=== PATIENT | male | born 1960 | race Caucasian/White ===

== ENCOUNTER 2017-09-04 22:25 | Inpatient (IN) | payer OTHER ==
[2017-09-04] MEDS: NITROGLYCERIN 2% 1 GM OINT PKT TD (22:36)
[2017-09-04] MEDS: HYDROmorphONE 1 MG/ML SYG IV ×2 (22:37→22:45)
[2017-09-04 22:38] LABS: ADD MAN DIFF? NO
[2017-09-04 22:40] LABS: WHITE BLOOD COUNT 7.1 10^3/ul (4.8-10.8)
[2017-09-04 22:40] LABS: BASOPHIL # 0.1 10^3/ul (0.0-0.1); BASOPHILS % 0.7 % (0.0-2.0); EOSINOPHILS # 0.2 10^3/ul (0.0-0.5); EOSINOPHILS % 3.2 % (0.0-7.0); HEMATOCRIT 33.2 % (42.0-52.0); HEMOGLOBIN 10.5 g/dl (14.0-18.0); LYMPHOCYTES # 0.9 10^3/ul (0.8-2.9); LYMPHOCYTES % 13.3 % (15.0-51.0); MEAN CORPUSCULAR HGB CONC 31.6 g/dl (32.0-37.0); MEAN CORPUSCULAR VOLUME 101.2 fl (82.0-101.0); MEAN PLATELET VOLUME 11.5 fl (7.4-10.4); MONOCYTE # 0.7 10^3/ul (0.3-0.9); MONOCYTES % 9.3 % (0.0-11.0); NEUTROPHIL # 5.2 10^3/ul (1.6-7.5); NEUTROPHILS % 73.2 % (39.0-77.0); NUCLEATED RED BLOOD CELLS # 0.1 10^3/ul (0.0-0.0); NUCLEATED RED BLOOD CELLS% 0.7 /100WBC (0.0-0.0); PLATELET COUNT 153 10^3/UL (140-415); RED BLOOD COUNT 3.28 10^6/ul (4.70-6.10); RED CELL DISTRIBUTION WIDTH 17.8 % (11.5-14.5)
[2017-09-04] MEDS: LORAZEPAM 2 MG INJ IV (22:45)
[2017-09-04 22:57] LABS: ANION GAP 17 (8-16); BLOOD UREA NITROGEN 36 mg/dl (7-20); CALCIUM 9.6 mg/dl (8.4-10.2); CARBON DIOXIDE 35 mmol/L (21-31); CHLORIDE 96 mmol/L (97-110); CREATININE 5.21 mg/dl (0.61-1.24); GLUCOSE 104 mg/dl (70-220); POTASSIUM 4.8 mmol/L (3.5-5.1); SODIUM 143 mmol/L (135-144)
[2017-09-04 23:17] LABS: TROPONIN-I 0.179 ng/ml (0.00-0.12)
[2017-09-05] MEDS: HYDROmorphONE 1 MG/ML SYG IV ×2 (01:05→03:37)
[2017-09-05] MEDS ORDERED: ONDANSETRON 4 MG INJ IV ×2 (01:30→03:00)
[2017-09-05] MEDS ORDERED: ACETAMINOPHEN 325 MG TAB PO ×2 (01:30→03:00)
[2017-09-05] MEDS ORDERED: DOCUSATE SODIUM 100 MG CAP PO (03:00)
[2017-09-05] MEDS ORDERED: BISACODYL (EC) 5 MG TAB PO (03:00)
[2017-09-05] MEDS ORDERED: NACL 0.9% 3 ML SYG IV (03:00)
[2017-09-05] MEDS: hydrALAzine 20 MG INJ IV (04:03)
[2017-09-05] MEDS: HEPARIN 5,000 UNIT/0.5 ML VIAL SC (06:45)
[2017-09-05] MEDS: HYDROmorphONE 0.5 MG/0.5 ML SYG IV ×4 (06:53→19:43)
[2017-09-05 07:13] LABS: CREATINE KINASE 53 IU/L (23-200)
[2017-09-05 07:15] LABS: CK-MB 2.66 ng/ml (0.0-2.4); TROPONIN-I 0.204 ng/ml (0.00-0.12)
[2017-09-05] MEDS: AMLODIPINE 5 MG TAB PO (10:00)
[2017-09-05] MEDS: CLOPIDOGREL 75 MG TAB PO (10:41)
[2017-09-05] MEDS: LEVOTHYROXINE 25 MCG TAB PO (10:41)
[2017-09-05] MEDS: ISOSORBIDE MONONITRATE(SR)30 MG TAB PO (10:41)
[2017-09-05] MEDS: CYANOCOBALAMIN 500 MCG TAB PO (10:41)
[2017-09-05] MEDS: FERROUS SULFATE (EC) 325 MG TAB PO ×2 (10:41→19:43)
[2017-09-05] MEDS: EZETIMIBE 10 MG TAB PO (10:41)
[2017-09-05] MEDS: ASPIRIN (EC) 81 MG TAB PO (10:42)
[2017-09-05] MEDS: PANTOPRAZOLE (EC) 40 MG TAB PO (10:47)
[2017-09-05] MEDS: CALCITRIOL 0.25 MCG CAP PO (10:47)
[2017-09-05 12:04] LABS: ADD MAN DIFF? NO
[2017-09-05 12:13] LABS: WHITE BLOOD COUNT 6.4 10^3/ul (4.8-10.8)
[2017-09-05 12:13] LABS: BASOPHILS % 0.6 % (0.0-2.0); EOSINOPHILS # 0.2 10^3/ul (0.0-0.5); EOSINOPHILS % 2.8 % (0.0-7.0); HEMATOCRIT 29.7 % (42.0-52.0); HEMOGLOBIN 9.3 g/dl (14.0-18.0); LYMPHOCYTES # 0.7 10^3/ul (0.8-2.9); LYMPHOCYTES % 11.3 % (15.0-51.0); MEAN CORPUSCULAR HEMOGLOBIN 32.3 pg (29.0-33.0); MEAN CORPUSCULAR HGB CONC 31.3 g/dl (32.0-37.0); MEAN CORPUSCULAR VOLUME 103.1 fl (82.0-101.0); MEAN PLATELET VOLUME 11.9 fl (7.4-10.4); MONOCYTE # 0.7 10^3/ul (0.3-0.9); MONOCYTES % 11.5 % (0.0-11.0); NEUTROPHIL # 4.7 10^3/ul (1.6-7.5); NEUTROPHILS % 73.5 % (39.0-77.0); NUCLEATED RED BLOOD CELLS% 0.5 /100WBC (0.0-0.0); PLATELET COUNT 142 10^3/UL (140-415); RED BLOOD COUNT 2.88 10^6/ul (4.70-6.10); RED CELL DISTRIBUTION WIDTH 17.9 % (11.5-14.5)
[2017-09-05] MEDS: SEVELAMER CARBONATE 0.8 GM PKT PO ×3 (12:14→21:00)
[2017-09-05 12:33] LABS: INR 1.15; PARTIAL THROMBOPLASTIN TIME 31.2 Sec (25.0-35.0); PROTIME 14.9 Sec (11.9-14.9); PT RATIO 1.2
[2017-09-05 12:44] LABS: CREATINE KINASE 51 IU/L (23-200)
[2017-09-05 12:56] LABS: CK INDEX 3.9; TROPONIN-I 0.162 ng/ml (0.00-0.12)
[2017-09-05] MEDS: HEPARIN 1000 UNITS/ML 10 ML INJ IV (15:11)
[2017-09-05] MEDS: HEPARIN 25000 UNITS/250 ML 250 ML IV (15:17)
[2017-09-05] MEDS: EPOETIN 10000 UNITS/1 ML INJ (ESRD) SC (17:41)
[2017-09-05 22:08] LABS: PARTIAL THROMBOPLASTIN TIME 53.6 Sec (25.0-35.0)
[2017-09-06] MEDS: HYDROmorphONE 0.5 MG/0.5 ML SYG IV ×7 (00:13→23:42)
[2017-09-06 05:31] LABS: ADD MAN DIFF? NO
[2017-09-06 05:44] LABS: BASOPHIL # 0.1 10^3/ul (0.0-0.1); BASOPHILS % 0.9 % (0.0-2.0); EOSINOPHILS # 0.2 10^3/ul (0.0-0.5); EOSINOPHILS % 2.6 % (0.0-7.0); HEMATOCRIT 30.7 % (42.0-52.0); HEMOGLOBIN 9.9 g/dl (14.0-18.0); LYMPHOCYTES # 0.8 10^3/ul (0.8-2.9); LYMPHOCYTES % 13.7 % (15.0-51.0); MEAN CORPUSCULAR HEMOGLOBIN 32.4 pg (29.0-33.0); MEAN CORPUSCULAR HGB CONC 32.2 g/dl (32.0-37.0); MEAN CORPUSCULAR VOLUME 100.3 fl (82.0-101.0); MEAN PLATELET VOLUME 12.4 fl (7.4-10.4); MONOCYTE # 0.6 10^3/ul (0.3-0.9); MONOCYTES % 9.9 % (0.0-11.0); NEUTROPHIL # 4.1 10^3/ul (1.6-7.5); NEUTROPHILS % 72.5 % (39.0-77.0); NUCLEATED RED BLOOD CELLS% 0.4 /100WBC (0.0-0.0); PLATELET COUNT 133 10^3/UL (140-415); RED BLOOD COUNT 3.06 10^6/ul (4.70-6.10); RED CELL DISTRIBUTION WIDTH 17.6 % (11.5-14.5)
[2017-09-06 05:44] LABS: WHITE BLOOD COUNT 5.7 10^3/ul (4.8-10.8)
[2017-09-06] MEDS: LEVOTHYROXINE 25 MCG TAB PO (06:13)
[2017-09-06] MEDS: PANTOPRAZOLE (EC) 40 MG TAB PO (06:13)
[2017-09-06 06:15] LABS: PARTIAL THROMBOPLASTIN TIME 39.6 Sec (25.0-35.0)
[2017-09-06 06:17] LABS: ALANINE AMINOTRANSFERASE 47 IU/L (13-69); ALBUMIN 4.2 g/dl (3.3-4.9); ALKALINE PHOSPHATASE 115 IU/L (42-121); ANION GAP 22 (8-16); ASPARTATE AMINO TRANSFERASE 26 IU/L (15-46); BILIRUBIN,INDIRECT 0.3 mg/dl (0-1.1); BILIRUBIN,TOTAL 0.3 mg/dl (0.2-1.3); BLOOD UREA NITROGEN 42 mg/dl (7-20); CALCIUM 9.7 mg/dl (8.4-10.2); CARBON DIOXIDE 30 mmol/L (21-31); CHLORIDE 97 mmol/L (97-110); CHOL/HDL RATIO 3.5 RATIO; CHOLESTEROL 153 mg/dl (100-200); CREATININE 6.78 mg/dl (0.61-1.24); GLUCOSE 99 mg/dl (70-220); HDL CHOLESTEROL 43 mg/dl (28-71); LDL CHOLESTEROL,CALCULATED 88 mg/dl; POTASSIUM 5.6 mmol/L (3.5-5.1); SODIUM 143 mmol/L (135-144); TOTAL PROTEIN 7.7 g/dl (6.1-8.1); TRIGLYCERIDES 109 mg/dl (0-149)
[2017-09-06 06:51] LABS: IRON 25 ug/dl (35-150)
[2017-09-06 07:01] LABS: % IRON SATURATION 8 % SAT (22-52); TOTAL IRON BINDING CAPACITY 301 ug/dl (241-421)
[2017-09-06] MEDS: HEPARIN 1000 UNITS/ML 10 ML INJ IV (07:08)
[2017-09-06 07:42] LABS: HEMOGLOBIN A1C 5.4 % (0-5.9)
[2017-09-06] MEDS: SEVELAMER CARBONATE 0.8 GM PKT PO ×4 (08:00→21:00)
[2017-09-06] MEDS: EZETIMIBE 10 MG TAB PO (08:01)
[2017-09-06] MEDS: ISOSORBIDE MONONITRATE(SR)30 MG TAB PO (08:01)
[2017-09-06] MEDS: CALCITRIOL 0.25 MCG CAP PO (08:01)
[2017-09-06] MEDS: CYANOCOBALAMIN 500 MCG TAB PO (08:02)
[2017-09-06] MEDS: CLOPIDOGREL 75 MG TAB PO (08:02)
[2017-09-06] MEDS: FERROUS SULFATE (EC) 325 MG TAB PO ×2 (08:02→20:32)
[2017-09-06] MEDS: AMLODIPINE 5 MG TAB PO ×2 (08:02→20:32)
[2017-09-06] MEDS: ASPIRIN (EC) 81 MG TAB PO (08:02)
[2017-09-06] MEDS: HEPARIN 25000 UNITS/250 ML 250 ML IV ×2 (11:20→15:28)
[2017-09-06 11:36] LABS: PHOSPHORUS 4.5 mg/dl (2.5-4.9)
[2017-09-06] MEDS: SOD FERRIC GLUC COMPLX 125 MG in SOD CHLORIDE 0.9% 100 ML IVPB (12:07)
[2017-09-06 15:22] LABS: PARTIAL THROMBOPLASTIN TIME 85.9 Sec (25.0-35.0)
[2017-09-06] MEDS ORDERED: NITROGLYCERIN (SL) 0.4 MG TAB SL (19:00)
[2017-09-06 21:47] LABS: PARTIAL THROMBOPLASTIN TIME 62.7 Sec (25.0-35.0)
[2017-09-07] MEDS: HEPARIN 25000 UNITS/250 ML 250 ML IV ×5 (02:38→22:25)
[2017-09-07] MEDS: HYDROmorphONE 0.5 MG/0.5 ML SYG IV ×5 (03:37→22:03)
[2017-09-07 04:19] LABS: ADD MAN DIFF? NO
[2017-09-07 04:22] LABS: BASOPHILS % 0.7 % (0.0-2.0); EOSINOPHILS # 0.1 10^3/ul (0.0-0.5); EOSINOPHILS % 2.3 % (0.0-7.0); HEMOGLOBIN 9.7 g/dl (14.0-18.0); LYMPHOCYTES # 0.7 10^3/ul (0.8-2.9); LYMPHOCYTES % 11.8 % (15.0-51.0); MEAN CORPUSCULAR HEMOGLOBIN 32.6 pg (29.0-33.0); MEAN CORPUSCULAR HGB CONC 32.3 g/dl (32.0-37.0); MEAN CORPUSCULAR VOLUME 100.7 fl (82.0-101.0); MEAN PLATELET VOLUME 12.1 fl (7.4-10.4); MONOCYTE # 0.6 10^3/ul (0.3-0.9); MONOCYTES % 9.8 % (0.0-11.0); NEUTROPHIL # 4.5 10^3/ul (1.6-7.5); NEUTROPHILS % 75.2 % (39.0-77.0); PLATELET COUNT 139 10^3/UL (140-415); RED BLOOD COUNT 2.98 10^6/ul (4.70-6.10); RED CELL DISTRIBUTION WIDTH 17.8 % (11.5-14.5)
[2017-09-07 04:51] LABS: ANION GAP 18 (8-16); BLOOD UREA NITROGEN 32 mg/dl (7-20); CALCIUM 9.3 mg/dl (8.4-10.2); CARBON DIOXIDE 29 mmol/L (21-31); CHLORIDE 99 mmol/L (97-110); GLUCOSE 107 mg/dl (70-220); POTASSIUM 5.1 mmol/L (3.5-5.1); SODIUM 141 mmol/L (135-144)
[2017-09-07 04:52] LABS: CREATININE 5.94 mg/dl (0.61-1.24)
[2017-09-07 04:55] LABS: CREATINE KINASE 89 IU/L (23-200)
[2017-09-07 05:09] LABS: CK INDEX 8.1
[2017-09-07 05:13] LABS: CK-MB 7.25 ng/ml (0.0-2.4)
[2017-09-07] MEDS: PANTOPRAZOLE (EC) 40 MG TAB PO (05:40)
[2017-09-07] MEDS: LEVOTHYROXINE 25 MCG TAB PO (05:40)
[2017-09-07] MEDS: CYANOCOBALAMIN 500 MCG TAB PO (07:46)
[2017-09-07] MEDS: SEVELAMER CARBONATE 0.8 GM PKT PO ×3 (07:46→17:52)
[2017-09-07] MEDS: CALCITRIOL 0.25 MCG CAP PO (07:47)
[2017-09-07] MEDS: FERROUS SULFATE (EC) 325 MG TAB PO ×2 (07:47→20:23)
[2017-09-07] MEDS: EZETIMIBE 10 MG TAB PO (07:47)
[2017-09-07] MEDS: AMLODIPINE 5 MG TAB PO ×2 (07:47→20:22)
[2017-09-07] MEDS: ASPIRIN (EC) 81 MG TAB PO (07:48)
[2017-09-07] MEDS: CLOPIDOGREL 75 MG TAB PO (07:48)
[2017-09-07] MEDS ORDERED: ALBUTEROL 0.083% (NEB) 2.5 MG/3 ML AMP HHN (09:00)
[2017-09-07] MEDS: ISOSORBIDE MONONITRATE(SR)60 MG TAB PO (10:05)
[2017-09-07] MEDS: SOD FERRIC GLUC COMPLX 125 MG in SOD CHLORIDE 0.9% 100 ML IVPB (11:38)
[2017-09-07 12:26] LABS: PARTIAL THROMBOPLASTIN TIME 57.1 Sec (25.0-35.0)
[2017-09-07 15:22] LABS: CREATINE KINASE 73 IU/L (23-200)
[2017-09-07 15:35] LABS: CK INDEX 6.5
[2017-09-07 16:03] LABS: CK-MB 4.76 ng/ml (0.0-2.4)
[2017-09-07] MEDS: EPOETIN 10000 UNITS/1 ML INJ (ESRD) SC (17:52)
[2017-09-07] MEDS: OXYCODONE/ACETAMINOPHEN (10/325) TAB PO (20:23)
[2017-09-07 20:40] LABS: PARTIAL THROMBOPLASTIN TIME 91.5 Sec (25.0-35.0)
[2017-09-08] MEDS: HYDROmorphONE 0.5 MG/0.5 ML SYG IV ×7 (02:04→23:34)
[2017-09-08] MEDS: HEPARIN 25000 UNITS/250 ML 250 ML IV (02:20)
[2017-09-08 02:44] LABS: ADD MAN DIFF? NO
[2017-09-08 02:45] LABS: BASOPHILS % 0.7 % (0.0-2.0); EOSINOPHILS # 0.2 10^3/ul (0.0-0.5); EOSINOPHILS % 2.9 % (0.0-7.0); HEMATOCRIT 30.4 % (42.0-52.0); HEMOGLOBIN 9.8 g/dl (14.0-18.0); LYMPHOCYTES # 0.7 10^3/ul (0.8-2.9); LYMPHOCYTES % 12.5 % (15.0-51.0); MEAN CORPUSCULAR HEMOGLOBIN 32.6 pg (29.0-33.0); MEAN CORPUSCULAR HGB CONC 32.2 g/dl (32.0-37.0); MEAN PLATELET VOLUME 11.7 fl (7.4-10.4); MONOCYTE # 0.6 10^3/ul (0.3-0.9); MONOCYTES % 10.2 % (0.0-11.0); NEUTROPHILS % 73.3 % (39.0-77.0); PLATELET COUNT 130 10^3/UL (140-415); RED BLOOD COUNT 3.01 10^6/ul (4.70-6.10); RED CELL DISTRIBUTION WIDTH 17.3 % (11.5-14.5)
[2017-09-08 02:45] LABS: WHITE BLOOD COUNT 5.5 10^3/ul (4.8-10.8)
[2017-09-08] MEDS: LEVOTHYROXINE 25 MCG TAB PO (05:07)
[2017-09-08] MEDS: PANTOPRAZOLE (EC) 40 MG TAB PO ×2 (05:07→17:34)
[2017-09-08 07:03] LABS: ADD MAN DIFF? NO
[2017-09-08 07:10] LABS: WHITE BLOOD COUNT 5.1 10^3/ul (4.8-10.8)
[2017-09-08 07:10] LABS: BASOPHILS % 0.8 % (0.0-2.0); EOSINOPHILS # 0.1 10^3/ul (0.0-0.5); EOSINOPHILS % 2.3 % (0.0-7.0); HEMATOCRIT 29.6 % (42.0-52.0); HEMOGLOBIN 9.6 g/dl (14.0-18.0); LYMPHOCYTES # 0.7 10^3/ul (0.8-2.9); LYMPHOCYTES % 12.9 % (15.0-51.0); MEAN CORPUSCULAR HEMOGLOBIN 32.2 pg (29.0-33.0); MEAN CORPUSCULAR HGB CONC 32.4 g/dl (32.0-37.0); MEAN CORPUSCULAR VOLUME 99.3 fl (82.0-101.0); MEAN PLATELET VOLUME 12.6 fl (7.4-10.4); MONOCYTE # 0.6 10^3/ul (0.3-0.9); MONOCYTES % 11.5 % (0.0-11.0); NEUTROPHIL # 3.7 10^3/ul (1.6-7.5); NEUTROPHILS % 72.3 % (39.0-77.0); PLATELET COUNT 135 10^3/UL (140-415); RED BLOOD COUNT 2.98 10^6/ul (4.70-6.10); RED CELL DISTRIBUTION WIDTH 17.2 % (11.5-14.5)
[2017-09-08 07:35] LABS: PARTIAL THROMBOPLASTIN TIME 37.1 Sec (25.0-35.0)
[2017-09-08 07:41] LABS: CREATINE KINASE 58 IU/L (23-200)
[2017-09-08 07:53] LABS: CK INDEX 6.2
[2017-09-08 07:54] LABS: CK-MB 3.57 ng/ml (0.0-2.4)
[2017-09-08] MEDS: SEVELAMER CARBONATE 0.8 GM PKT PO ×3 (08:24→17:34)
[2017-09-08] MEDS: CALCITRIOL 0.25 MCG CAP PO (08:24)
[2017-09-08] MEDS: CYANOCOBALAMIN 500 MCG TAB PO (08:24)
[2017-09-08] MEDS: FERROUS SULFATE (EC) 325 MG TAB PO ×2 (08:25→20:44)
[2017-09-08] MEDS: ASPIRIN (EC) 81 MG TAB PO (08:25)
[2017-09-08] MEDS: CLOPIDOGREL 75 MG TAB PO (08:27)
[2017-09-08] MEDS: EZETIMIBE 10 MG TAB PO (08:27)
[2017-09-08] MEDS: ISOSORBIDE MONONITRATE(SR)60 MG TAB PO (08:33)
[2017-09-08] MEDS: AMLODIPINE 5 MG TAB PO ×2 (08:33→20:43)
[2017-09-08] MEDS: SOD FERRIC GLUC COMPLX 125 MG in SOD CHLORIDE 0.9% 100 ML IVPB (10:57)
[2017-09-08 13:43] LABS: OCCULT BLOOD STOOL POSITIVE (NEGATIVE)
[2017-09-08 14:49] LABS: ADD MAN DIFF? NO
[2017-09-08 14:52] LABS: ABNORMAL IP MESSAGE 1; BASOPHILS % 0.6 % (0.0-2.0); EOSINOPHILS # 0.1 10^3/ul (0.0-0.5); EOSINOPHILS % 2.3 % (0.0-7.0); HEMOGLOBIN 9.6 g/dl (14.0-18.0); LYMPHOCYTES # 0.5 10^3/ul (0.8-2.9); LYMPHOCYTES % 10.2 % (15.0-51.0); MEAN CORPUSCULAR HEMOGLOBIN 31.7 pg (29.0-33.0); MEAN PLATELET VOLUME 11.5 fl (7.4-10.4); MONOCYTE # 0.5 10^3/ul (0.3-0.9); MONOCYTES % 10.2 % (0.0-11.0); NEUTROPHILS % 76.5 % (39.0-77.0); PLATELET COUNT 135 10^3/UL (140-415); POSITIVE DIFF @See below; RED BLOOD COUNT 3.03 10^6/ul (4.70-6.10)
[2017-09-08 14:52] LABS: WHITE BLOOD COUNT 5.3 10^3/ul (4.8-10.8)
[2017-09-08] MEDS: PANTOPRAZOLE 40 MG INJ IV (17:34)
[2017-09-08 20:16] LABS: ADD MAN DIFF? NO
[2017-09-08 20:19] LABS: WHITE BLOOD COUNT 4.8 10^3/ul (4.8-10.8)
[2017-09-08 20:19] LABS: ABNORMAL IP MESSAGE 1; BASOPHILS % 0.4 % (0.0-2.0); EOSINOPHILS # 0.1 10^3/ul (0.0-0.5); EOSINOPHILS % 2.3 % (0.0-7.0); HEMATOCRIT 30.3 % (42.0-52.0); HEMOGLOBIN 9.9 g/dl (14.0-18.0); LYMPHOCYTES # 0.5 10^3/ul (0.8-2.9); LYMPHOCYTES % 10.5 % (15.0-51.0); MEAN CORPUSCULAR HEMOGLOBIN 32.6 pg (29.0-33.0); MEAN CORPUSCULAR HGB CONC 32.7 g/dl (32.0-37.0); MEAN CORPUSCULAR VOLUME 99.7 fl (82.0-101.0); MEAN PLATELET VOLUME 12.4 fl (7.4-10.4); MONOCYTE # 0.6 10^3/ul (0.3-0.9); MONOCYTES % 12.2 % (0.0-11.0); NEUTROPHIL # 3.6 10^3/ul (1.6-7.5); NEUTROPHILS % 74.4 % (39.0-77.0); PLATELET COUNT 134 10^3/UL (140-415); POSITIVE DIFF @See below; RED BLOOD COUNT 3.04 10^6/ul (4.70-6.10); RED CELL DISTRIBUTION WIDTH 16.9 % (11.5-14.5)
[2017-09-09] MEDS: HYDROmorphONE 0.5 MG/0.5 ML SYG IV ×7 (02:26→21:49)
[2017-09-09 02:32] LABS: ADD MAN DIFF? NO
[2017-09-09 04:24] LABS: BASOPHILS % 0.7 % (0.0-2.0); EOSINOPHILS # 0.1 10^3/ul (0.0-0.5); EOSINOPHILS % 2.2 % (0.0-7.0); HEMATOCRIT 33.8 % (42.0-52.0); HEMOGLOBIN 11.2 g/dl (14.0-18.0); LYMPHOCYTES # 0.6 10^3/ul (0.8-2.9); LYMPHOCYTES % 11.4 % (15.0-51.0); MEAN CORPUSCULAR HEMOGLOBIN 32.4 pg (29.0-33.0); MEAN CORPUSCULAR HGB CONC 33.1 g/dl (32.0-37.0); MEAN CORPUSCULAR VOLUME 97.7 fl (82.0-101.0); MEAN PLATELET VOLUME 11.1 fl (7.4-10.4); MONOCYTE # 0.7 10^3/ul (0.3-0.9); MONOCYTES % 13.4 % (0.0-11.0); NEUTROPHIL # 3.9 10^3/ul (1.6-7.5); NEUTROPHILS % 71.7 % (39.0-77.0); PLATELET COUNT 125 10^3/UL (140-415); RED BLOOD COUNT 3.46 10^6/ul (4.70-6.10); RED CELL DISTRIBUTION WIDTH 16.7 % (11.5-14.5)
[2017-09-09 04:24] LABS: WHITE BLOOD COUNT 5.4 10^3/ul (4.8-10.8)
[2017-09-09] MEDS: PANTOPRAZOLE 40 MG INJ IV ×2 (06:13→17:35)
[2017-09-09] MEDS: PANTOPRAZOLE (EC) 40 MG TAB PO ×2 (06:13→17:35)
[2017-09-09] MEDS: LEVOTHYROXINE 25 MCG TAB PO (06:20)
[2017-09-09] MEDS: SEVELAMER CARBONATE 0.8 GM PKT PO ×3 (08:22→17:36)
[2017-09-09] MEDS: ISOSORBIDE MONONITRATE(SR)60 MG TAB PO (08:22)
[2017-09-09] MEDS: CALCITRIOL 0.25 MCG CAP PO (08:22)
[2017-09-09] MEDS: EZETIMIBE 10 MG TAB PO (08:23)
[2017-09-09] MEDS: AMLODIPINE 5 MG TAB PO ×2 (08:23→21:48)
[2017-09-09] MEDS: CLOPIDOGREL 75 MG TAB PO (08:23)
[2017-09-09] MEDS: CYANOCOBALAMIN 500 MCG TAB PO (08:23)
[2017-09-09] MEDS: FERROUS SULFATE (EC) 325 MG TAB PO ×2 (08:23→21:48)
[2017-09-09] MEDS: ASPIRIN (EC) 81 MG TAB PO (08:23)
[2017-09-09] MEDS: SOD FERRIC GLUC COMPLX 125 MG in SOD CHLORIDE 0.9% 100 ML IVPB (11:27)
[2017-09-10] MEDS: HYDROmorphONE 0.5 MG/0.5 ML SYG IV ×7 (00:52→20:47)
[2017-09-10] MEDS: HYDROCORTISONE 25 MG SUPP PR ×3 (01:03→21:00)
[2017-09-10] MEDS: PANTOPRAZOLE (EC) 40 MG TAB PO (06:36)
[2017-09-10] MEDS: PANTOPRAZOLE 40 MG INJ IV ×2 (06:36→17:10)
[2017-09-10] MEDS: LEVOTHYROXINE 25 MCG TAB PO (06:39)
[2017-09-10] MEDS: FERROUS SULFATE (EC) 325 MG TAB PO ×2 (08:45→20:46)
[2017-09-10] MEDS: CLOPIDOGREL 75 MG TAB PO (08:45)
[2017-09-10] MEDS: ASPIRIN (EC) 81 MG TAB PO (08:45)
[2017-09-10] MEDS: CYANOCOBALAMIN 500 MCG TAB PO (08:45)
[2017-09-10] MEDS: CALCITRIOL 0.25 MCG CAP PO (08:45)
[2017-09-10] MEDS: EZETIMIBE 10 MG TAB PO (08:46)
[2017-09-10] MEDS: SEVELAMER CARBONATE 0.8 GM PKT PO ×3 (08:47→17:10)
[2017-09-10] MEDS: AMLODIPINE 5 MG TAB PO ×3 (08:48→20:46)
[2017-09-10] MEDS: ISOSORBIDE MONONITRATE(SR)60 MG TAB PO ×2 (08:48→08:57)
[2017-09-10] MEDS: SOD FERRIC GLUC COMPLX 125 MG in SOD CHLORIDE 0.9% 100 ML IVPB (11:55)
[2017-09-10] MEDS: EPOETIN 10000 UNITS/1 ML INJ (ESRD) SC (17:11)
== END 2017-09-10 21:57 | disposition short-term general hospital (02) | DRG 280 ==
LOC: TEL 09-07 17:33 → E/R 22:25 → TEL 09-08 16:44
PROC: 5A1D70Z Performance of Urinary Filtration, Intermittent, Less than 6 Hours Per Day (ICD-10-PCS; principal; 2017-09-05)
DX: I21.4 Non-ST elevation (NSTEMI) myocardial infarction (principal); I13.2 Hypertensive heart and chronic kidney disease with heart failure and with stage 5 chronic kidney disease, or end stage renal disease; N18.6 End stage renal disease; I50.31 Acute diastolic (congestive) heart failure; E78.5 Hyperlipidemia, unspecified; E11.22 Type 2 diabetes mellitus with diabetic chronic kidney disease; E03.9 Hypothyroidism, unspecified; R00.1 Bradycardia, unspecified; K64.9 Unspecified hemorrhoids; I25.10 Atherosclerotic heart disease of native coronary artery without angina pectoris; D63.1 Anemia in chronic kidney disease; E87.5 Hyperkalemia; Z95.1 Presence of aortocoronary bypass graft; Z95.5 Presence of coronary angioplasty implant and graft; Z99.2 Dependence on renal dialysis
CPT/HCPCS: 36415; 71010; 76700; 80048; 80053; 80061; 82270; 82550; 82553; 82728; 83036; 83540; 83735; 84100; 84443; 84484; 85025; 85610; 85730; 86850; 86900; 86901; 87081; 90935; 93005; 93306; 96374; 96375; 96376; 99285-25; G0378

== ENCOUNTER 2017-12-30 18:05 | Emergency (ER) | payer OTHER ==
[2017-12-30] MEDS: NITROGLYCERIN 2% 1 GM OINT PKT TD (18:43)
[2017-12-30 18:49] LABS: WHITE BLOOD COUNT 4.4 10^3/ul (4.8-10.8)
[2017-12-30 18:49] LABS: HEMOGLOBIN 9.4 g/dl (14.0-18.0); MEAN CORPUSCULAR HEMOGLOBIN 30.5 pg (29.0-33.0); MEAN CORPUSCULAR HGB CONC 31.3 g/dl (32.0-37.0); MEAN CORPUSCULAR VOLUME 97.4 fl (82.0-101.0); MEAN PLATELET VOLUME 11.1 fl (7.4-10.4); PLATELET COUNT 201 10^3/UL (140-415); RED BLOOD COUNT 3.08 10^6/ul (4.70-6.10); RED CELL DISTRIBUTION WIDTH 16.6 % (11.5-14.5)
[2017-12-30 18:54] LABS: ADD MAN DIFF? YES
[2017-12-30 19:10] LABS: ANION GAP 19 (8-16); BLOOD UREA NITROGEN 46 mg/dl (7-20); CALCIUM 9.7 mg/dl (8.4-10.2); CARBON DIOXIDE 31 mmol/L (21-31); CHLORIDE 97 mmol/L (97-110); CREATININE 11.41 mg/dl (0.61-1.24); GLUCOSE 118 mg/dl (70-220); PHOSPHORUS 6.6 mg/dl (2.5-4.9); POTASSIUM 4.9 mmol/L (3.5-5.1); SODIUM 142 mmol/L (135-144)
[2017-12-30 19:24] LABS: INR 1.05; PARTIAL THROMBOPLASTIN TIME 32.9 Sec (25.0-35.0); PROTIME 13.8 Sec (11.9-14.9); PT RATIO 1.1
[2017-12-30] MEDS: HYDROmorphONE 0.5 MG/0.5 ML SYG IV (19:45)
[2017-12-30 20:21] LABS: ANISOCYTOSIS 1+ (0-0); BASOPHILS % (M) 2 % (0-2); EOSINOPHILS % (M) 1 % (0-7); GIANT THROMBO% (M) 4 % (0-0); LYMPHOCYTES #M 1.1 10^3/ul (0.8-2.9); LYMPHOCYTES % (M) 25 % (15-51); METAMYELOCYTES %M 1 % (0-0); MONOCYTE #M 0.4 10^3/ul (0.3-0.9); MONOCYTES % (M) 10 % (0-11); OVALOCYTES 1+ (0-0); PLATELET ESTIMATE NORMAL; POIKILOCYTOSIS 1+ (0-0); SEGMENTED NEUTROPHILS (M) % 61 % (39-77); SMUDGE%M 3 % (0-0)
== END 2017-12-30 22:01 | disposition short-term general hospital (02) ==
LOC: E/R 22:01
DX: R07.9 Chest pain, unspecified (principal); D64.9 Anemia, unspecified; D72.819 Decreased white blood cell count, unspecified; I25.10 Atherosclerotic heart disease of native coronary artery without angina pectoris; I12.9 Hypertensive chronic kidney disease with stage 1 through stage 4 chronic kidney disease, or unspecified chronic kidney disease; N18.9 Chronic kidney disease, unspecified; E03.9 Hypothyroidism, unspecified; E11.22 Type 2 diabetes mellitus with diabetic chronic kidney disease; Z95.1 Presence of aortocoronary bypass graft; Z99.2 Dependence on renal dialysis; Z79.82 Long term (current) use of aspirin; Z98.61 Coronary angioplasty status
CPT/HCPCS: 36415; 71045; 80048; 83735; 84100; 84484; 85025; 85610; 85730; 93005; 96374; 99285-25

== ENCOUNTER 2018-02-12 20:33 | Emergency (ER) | payer OTHER ==
[2018-02-12 21:26] LABS: ADD MAN DIFF? NO
[2018-02-12 21:29] LABS: BASOPHIL # 0.1 10^3/ul (0.0-0.1); BASOPHILS % 1.2 % (0.0-2.0); EOSINOPHILS # 0.1 10^3/ul (0.0-0.5); EOSINOPHILS % 2.5 % (0.0-7.0); HEMATOCRIT 34.3 % (42.0-52.0); HEMOGLOBIN 10.8 g/dl (14.0-18.0); LYMPHOCYTES # 1.1 10^3/ul (0.8-2.9); LYMPHOCYTES % 19.1 % (15.0-51.0); MEAN CORPUSCULAR HEMOGLOBIN 30.7 pg (29.0-33.0); MEAN CORPUSCULAR HGB CONC 31.5 g/dl (32.0-37.0); MEAN CORPUSCULAR VOLUME 97.4 fl (82.0-101.0); MEAN PLATELET VOLUME 11.3 fl (7.4-10.4); MONOCYTE # 0.5 10^3/ul (0.3-0.9); MONOCYTES % 9.6 % (0.0-11.0); NEUTROPHIL # 3.8 10^3/ul (1.6-7.5); NEUTROPHILS % 67.2 % (39.0-77.0); PLATELET COUNT 181 10^3/UL (140-415); RED BLOOD COUNT 3.52 10^6/ul (4.70-6.10); RED CELL DISTRIBUTION WIDTH 16.9 % (11.5-14.5)
[2018-02-12 21:29] LABS: WHITE BLOOD COUNT 5.7 10^3/ul (4.8-10.8)
[2018-02-12 21:38] LABS: ALANINE AMINOTRANSFERASE 33 IU/L (13-69); ALBUMIN/GLOBULIN RATIO 1.14; ALKALINE PHOSPHATASE 83 IU/L (42-121); ANION GAP 17 (8-16); ASPARTATE AMINO TRANSFERASE 20 IU/L (15-46); BILIRUBIN,INDIRECT 0.1 mg/dl (0-1.1); BILIRUBIN,TOTAL 0.1 mg/dl (0.2-1.3); BLOOD UREA NITROGEN 56 mg/dl (7-20); CALCIUM 8.9 mg/dl (8.4-10.2); CARBON DIOXIDE 33 mmol/L (21-31); CHLORIDE 100 mmol/L (97-110); CREATININE 9.06 mg/dl (0.61-1.24); GLUCOSE 94 mg/dl (70-220); LIPASE 53 U/L (23-300); POTASSIUM 5.2 mmol/L (3.5-5.1); SODIUM 145 mmol/L (135-144); TOTAL PROTEIN 7.5 g/dl (6.1-8.1)
[2018-02-12 21:49] LABS: TROPONIN-I 0.111 ng/ml (0.000-0.120)
[2018-02-12] MEDS: ASPIRIN 81 MG TAB PO (22:05)
[2018-02-12 22:07] LABS: B-TYPE NATRIURETIC PEPTIDE 120000 PG/ML (0-125)
[2018-02-12] MEDS: OXYCODONE/ACETAMINOPHEN (5/325) TAB PO (23:07)
== END 2018-02-13 01:05 | disposition short-term general hospital (02) ==
LOC: E/R 02-13 01:05
DX: I50.41 Acute combined systolic (congestive) and diastolic (congestive) heart failure (principal); J81.0 Acute pulmonary edema; N18.6 End stage renal disease; G89.4 Chronic pain syndrome; I12.0 Hypertensive chronic kidney disease with stage 5 chronic kidney disease or end stage renal disease; I25.10 Atherosclerotic heart disease of native coronary artery without angina pectoris; E11.22 Type 2 diabetes mellitus with diabetic chronic kidney disease; E03.9 Hypothyroidism, unspecified; E66.9 Obesity, unspecified; Z98.61 Coronary angioplasty status; Z79.82 Long term (current) use of aspirin
CPT/HCPCS: 36415; 71045; 80053; 83690; 83880; 84484; 85025; 94660; 99291-25

== ENCOUNTER 2018-03-07 22:14 | Emergency (ER) | payer OTHER ==
[2018-03-07 22:25] LABS: ADD MAN DIFF? NO
[2018-03-07] MEDS: HYDROmorphONE 1 MG/ML SYG IV (22:26)
[2018-03-07] MEDS: ONDANSETRON 4 MG INJ IV (22:26)
[2018-03-07 22:27] LABS: BASOPHILS % 0.6 % (0.0-2.0); EOSINOPHILS # 0.3 10^3/ul (0.0-0.5); HEMATOCRIT 35.6 % (42.0-52.0); HEMOGLOBIN 11.1 g/dl (14.0-18.0); LYMPHOCYTES % 14.7 % (15.0-51.0); MEAN CORPUSCULAR HEMOGLOBIN 29.7 pg (29.0-33.0); MEAN CORPUSCULAR HGB CONC 31.2 g/dl (32.0-37.0); MEAN CORPUSCULAR VOLUME 95.2 fl (82.0-101.0); MEAN PLATELET VOLUME 11.8 fl (7.4-10.4); MONOCYTE # 0.7 10^3/ul (0.3-0.9); MONOCYTES % 10.3 % (0.0-11.0); NEUTROPHIL # 4.8 10^3/ul (1.6-7.5); PLATELET COUNT 110 10^3/UL (140-415); RED BLOOD COUNT 3.74 10^6/ul (4.70-6.10); RED CELL DISTRIBUTION WIDTH 16.5 % (11.5-14.5)
[2018-03-07 22:27] LABS: WHITE BLOOD COUNT 6.8 10^3/ul (4.8-10.8)
[2018-03-07 22:45] LABS: ALANINE AMINOTRANSFERASE 47 IU/L (13-69); ALBUMIN 4.3 g/dl (3.3-4.9); ALBUMIN/GLOBULIN RATIO 1.13; ALKALINE PHOSPHATASE 109 IU/L (42-121); AMYLASE 127 U/L (11-123); ANION GAP 19 (8-16); ASPARTATE AMINO TRANSFERASE 28 IU/L (15-46); BILIRUBIN,INDIRECT 0.4 mg/dl (0-1.1); BILIRUBIN,TOTAL 0.4 mg/dl (0.2-1.3); BLOOD UREA NITROGEN 29 mg/dl (7-20); CALCIUM 8.7 mg/dl (8.4-10.2); CARBON DIOXIDE 34 mmol/L (21-31); CHLORIDE 98 mmol/L (97-110); CREATININE 4.97 mg/dl (0.61-1.24); GLUCOSE 99 mg/dl (70-220); LIPASE 255 U/L (23-300); POTASSIUM 4.6 mmol/L (3.5-5.1); SODIUM 146 mmol/L (135-144); TOTAL PROTEIN 8.1 g/dl (6.1-8.1)
[2018-03-07 22:55] LABS: INR 1.17; PROTIME 15.1 Sec (11.9-14.9); PT RATIO 1.2
[2018-03-07 22:56] LABS: PARTIAL THROMBOPLASTIN TIME 29.7 Sec (25.0-35.0)
== END 2018-03-08 00:27 | disposition short-term general hospital (02) ==
LOC: E/R 03-08 00:27
DX: I21.4 Non-ST elevation (NSTEMI) myocardial infarction (principal); I25.10 Atherosclerotic heart disease of native coronary artery without angina pectoris; I12.0 Hypertensive chronic kidney disease with stage 5 chronic kidney disease or end stage renal disease; N18.6 End stage renal disease; Z79.01 Long term (current) use of anticoagulants; Z95.1 Presence of aortocoronary bypass graft; Z99.2 Dependence on renal dialysis; Z79.82 Long term (current) use of aspirin
CPT/HCPCS: 80053; 82150; 83690; 84484; 85025; 85610; 85730; 93005; 96374; 96375; 99285-25

== ENCOUNTER 2018-04-04 20:34 | Inpatient (IN) | payer OTHER ==
[2018-04-04 20:47] LABS: ADD MAN DIFF? NO
[2018-04-04 20:53] LABS: ABNORMAL IP MESSAGE 1; BASOPHILS % 0.6 % (0.0-2.0); EOSINOPHILS # 0.1 10^3/ul (0.0-0.5); EOSINOPHILS % 0.9 % (0.0-7.0); HEMATOCRIT 34.6 % (42.0-52.0); LYMPHOCYTES # 0.5 10^3/ul (0.8-2.9); LYMPHOCYTES % 6.9 % (15.0-51.0); MEAN CORPUSCULAR HGB CONC 31.8 g/dl (32.0-37.0); MEAN CORPUSCULAR VOLUME 94.3 fl (82.0-101.0); MEAN PLATELET VOLUME 12.5 fl (7.4-10.4); MONOCYTE # 0.4 10^3/ul (0.3-0.9); MONOCYTES % 6.4 % (0.0-11.0); NEUTROPHIL # 5.9 10^3/ul (1.6-7.5); NEUTROPHILS % 84.8 % (39.0-77.0); PLATELET COUNT 107 10^3/UL (140-415); POSITIVE DIFF @See below; RED BLOOD COUNT 3.67 10^6/ul (4.70-6.10); RED CELL DISTRIBUTION WIDTH 17.2 % (11.5-14.5)
[2018-04-04 20:53] LABS: WHITE BLOOD COUNT 6.9 10^3/ul (4.8-10.8)
[2018-04-04] MEDS: NITROGLYCERIN (SL) 0.4 MG TAB SL (20:54)
[2018-04-04] MEDS: ASPIRIN 81 MG TAB PO (20:54)
[2018-04-04] MEDS: NITROGLYCERIN 2% 1 GM OINT PKT TD (20:55)
[2018-04-04 21:11] LABS: ANION GAP 16 (8-16); BLOOD UREA NITROGEN 27 mg/dl (7-20); CARBON DIOXIDE 31 mmol/L (21-31); CHLORIDE 98 mmol/L (97-110); CREATININE 4.33 mg/dl (0.61-1.24); GLUCOSE 125 mg/dl (70-220); POTASSIUM 3.9 mmol/L (3.5-5.1); SODIUM 141 mmol/L (135-144)
[2018-04-04 21:29] LABS: TROPONIN-I 0.133 ng/ml (0.000-0.120)
[2018-04-04] MEDS ORDERED: ONDANSETRON 4 MG INJ IV ×2 (22:30→23:30)
[2018-04-04] MEDS ORDERED: ACETAMINOPHEN 325 MG TAB PO ×2 (22:30→23:30)
[2018-04-04] MEDS ORDERED: NITROGLYCERIN (SL) 0.4 MG TAB SL (23:30)
[2018-04-04] MEDS: HYDROCODONE/APAP (5/325) TAB PO (23:42)
[2018-04-05] MEDS: HYDROCODONE/APAP (5/325) TAB PO (00:53)
[2018-04-05 01:01] LABS: CREATINE KINASE 63 IU/L (23-200)
[2018-04-05] MEDS: HYDROmorphONE 2 MG TAB PO (01:07)
[2018-04-05 01:15] LABS: CK INDEX 3.1; CK-MB 1.93 ng/ml (0.0-2.4)
[2018-04-05 01:26] LABS: TROPONIN-I 0.133 ng/ml (0.000-0.120)
[2018-04-05] MEDS: LACTULOSE 30ML CUP PO ×2 (04:00→16:00)
[2018-04-05] MEDS ORDERED: NACL 0.9% 3 ML SYG IV (04:00)
[2018-04-05] MEDS ORDERED: ONDANSETRON 4 MG INJ IV (04:00)
[2018-04-05] MEDS ORDERED: NITROGLYCERIN (SL) 0.4 MG TAB SL (04:00)
[2018-04-05] MEDS ORDERED: ALBUTEROL/IPRATROPIUM (NEB) 3 ML AMP HHN (04:00)
[2018-04-05] MEDS ORDERED: ACETAMINOPHEN 325 MG TAB PO (04:00)
[2018-04-05] MEDS: oxyCODONE (CR) 10 MG TAB [oxyCONTIN] PO ×4 (04:00→21:23)
[2018-04-05] MEDS: HYDROmorphONE 4 MG TAB PO ×2 (05:50→12:46)
[2018-04-05] MEDS: PANTOPRAZOLE (EC) 40 MG TAB PO (05:50)
[2018-04-05 06:38] LABS: ADD MAN DIFF? NO
[2018-04-05 06:44] LABS: ABNORMAL IP MESSAGE 1; BASOPHIL # 0.1 10^3/ul (0.0-0.1); BASOPHILS % 0.7 % (0.0-2.0); EOSINOPHILS # 0.1 10^3/ul (0.0-0.5); EOSINOPHILS % 1.2 % (0.0-7.0); HEMATOCRIT 34.1 % (42.0-52.0); HEMOGLOBIN 10.5 g/dl (14.0-18.0); LYMPHOCYTES # 0.9 10^3/ul (0.8-2.9); LYMPHOCYTES % 13.1 % (15.0-51.0); MEAN CORPUSCULAR HEMOGLOBIN 28.9 pg (29.0-33.0); MEAN CORPUSCULAR HGB CONC 30.8 g/dl (32.0-37.0); MEAN CORPUSCULAR VOLUME 93.9 fl (82.0-101.0); MONOCYTE # 0.6 10^3/ul (0.3-0.9); MONOCYTES % 9.2 % (0.0-11.0); NEUTROPHIL # 5.2 10^3/ul (1.6-7.5); NEUTROPHILS % 75.5 % (39.0-77.0); PLATELET COUNT 106 10^3/UL (140-415); POSITIVE DIFF @See below; RED BLOOD COUNT 3.63 10^6/ul (4.70-6.10); RED CELL DISTRIBUTION WIDTH 17.1 % (11.5-14.5)
[2018-04-05 06:44] LABS: WHITE BLOOD COUNT 6.9 10^3/ul (4.8-10.8)
[2018-04-05 07:00] LABS: ALANINE AMINOTRANSFERASE 36 IU/L (13-69); ALBUMIN 4.3 g/dl (3.3-4.9); ALBUMIN/GLOBULIN RATIO 1.43; ALKALINE PHOSPHATASE 63 IU/L (42-121); ANION GAP 19 (8-16); ASPARTATE AMINO TRANSFERASE 25 IU/L (15-46); BILIRUBIN,INDIRECT 0.5 mg/dl (0-1.1); BILIRUBIN,TOTAL 0.5 mg/dl (0.2-1.3); BLOOD UREA NITROGEN 33 mg/dl (7-20); CALCIUM 8.9 mg/dl (8.4-10.2); CARBON DIOXIDE 31 mmol/L (21-31); CHLORIDE 97 mmol/L (97-110); CHOL/HDL RATIO 1.8 RATIO; CHOLESTEROL 83 mg/dl (100-200); CREATININE 5.34 mg/dl (0.61-1.24); GLUCOSE 101 mg/dl (70-220); HDL CHOLESTEROL 44 mg/dl (28-71); LDL CHOLESTEROL,CALCULATED 13 mg/dl; MAGNESIUM 1.9 mg/dl (1.7-2.5); POTASSIUM 4.5 mmol/L (3.5-5.1); SODIUM 142 mmol/L (135-144); TOTAL PROTEIN 7.3 g/dl (6.1-8.1); TRIGLYCERIDES 130 mg/dl (0-149)
[2018-04-05 07:03] LABS: CREATINE KINASE 58 IU/L (23-200)
[2018-04-05 07:13] LABS: CK INDEX 3.8
[2018-04-05 07:19] LABS: TROPONIN-I 0.143 ng/ml (0.000-0.120)
[2018-04-05] MEDS: LEVOTHYROXINE 25 MCG TAB PO (07:26)
[2018-04-05 08:00] LABS: HEMOGLOBIN A1C 5.5 % (0-5.9)
[2018-04-05] MEDS: AMLODIPINE 5 MG TAB PO ×2 (09:00→09:09)
[2018-04-05] MEDS: ISOSORBIDE MONONITRATE(SR)30 MG TAB PO (09:08)
[2018-04-05] MEDS: SEVELAMER CARBONATE 0.8 GM PKT PO ×3 (09:08→16:55)
[2018-04-05] MEDS: ASPIRIN (EC) 81 MG TAB PO (09:09)
[2018-04-05] MEDS: GABAPENTIN 100 MG CAP PO ×3 (09:10→21:23)
[2018-04-05] MEDS: EZETIMIBE 10 MG TAB PO (09:10)
[2018-04-05] MEDS: HEPARIN 5,000 UNIT/0.5 ML VIAL SC ×2 (09:13→21:32)
[2018-04-05] MEDS: TICAGRELOR 90 MG TABLET PO ×2 (09:14→21:33)
[2018-04-05 15:57] LABS: HEPATITIS B SURFACE ANTIGEN NEGATIVE (NEGATIVE)
[2018-04-05 16:27] LABS: HEPATITIS B SURFACE ANTIBODY NEGATIVE (NEGATIVE)
[2018-04-06] MEDS: HYDROmorphONE 4 MG TAB PO (00:49)
[2018-04-06] MEDS: LACTULOSE 30ML CUP PO (06:52)
[2018-04-06] MEDS: LEVOTHYROXINE 25 MCG TAB PO (06:52)
[2018-04-06] MEDS: oxyCODONE (CR) 10 MG TAB [oxyCONTIN] PO ×2 (06:52→11:28)
[2018-04-06] MEDS: PANTOPRAZOLE (EC) 40 MG TAB PO (06:52)
[2018-04-06 07:10] LABS: ADD MAN DIFF? NO
[2018-04-06 07:12] LABS: BASOPHILS % 0.7 % (0.0-2.0); EOSINOPHILS # 0.1 10^3/ul (0.0-0.5); EOSINOPHILS % 2.1 % (0.0-7.0); HEMATOCRIT 32.5 % (42.0-52.0); HEMOGLOBIN 9.9 g/dl (14.0-18.0); LYMPHOCYTES # 0.9 10^3/ul (0.8-2.9); LYMPHOCYTES % 15.4 % (15.0-51.0); MEAN CORPUSCULAR HEMOGLOBIN 28.9 pg (29.0-33.0); MEAN CORPUSCULAR HGB CONC 30.5 g/dl (32.0-37.0); MEAN PLATELET VOLUME 12.9 fl (7.4-10.4); MONOCYTE # 0.7 10^3/ul (0.3-0.9); MONOCYTES % 12.2 % (0.0-11.0); NEUTROPHIL # 4.1 10^3/ul (1.6-7.5); NEUTROPHILS % 69.3 % (39.0-77.0); PLATELET COUNT 114 10^3/UL (140-415); RED BLOOD COUNT 3.42 10^6/ul (4.70-6.10); RED CELL DISTRIBUTION WIDTH 17.2 % (11.5-14.5)
[2018-04-06 07:12] LABS: WHITE BLOOD COUNT 5.8 10^3/ul (4.8-10.8)
[2018-04-06 08:01] LABS: ANION GAP 15 (8-16); BLOOD UREA NITROGEN 25 mg/dl (7-20); CALCIUM 8.2 mg/dl (8.4-10.2); CARBON DIOXIDE 32 mmol/L (21-31); CHLORIDE 97 mmol/L (97-110); CREATININE 4.82 mg/dl (0.61-1.24); GLUCOSE 81 mg/dl (70-220); MAGNESIUM 1.8 mg/dl (1.7-2.5); PHOSPHORUS 3.9 mg/dl (2.5-4.9); POTASSIUM 4.6 mmol/L (3.5-5.1); SODIUM 139 mmol/L (135-144)
[2018-04-06] MEDS: ASPIRIN (EC) 81 MG TAB PO (08:27)
[2018-04-06] MEDS: ISOSORBIDE MONONITRATE(SR)30 MG TAB PO (08:27)
[2018-04-06] MEDS: EZETIMIBE 10 MG TAB PO (08:28)
[2018-04-06] MEDS: AMLODIPINE 5 MG TAB PO (08:28)
[2018-04-06] MEDS: GABAPENTIN 100 MG CAP PO ×2 (08:28→12:09)
[2018-04-06] MEDS: SEVELAMER CARBONATE 0.8 GM PKT PO ×2 (08:29→11:28)
[2018-04-06] MEDS: TICAGRELOR 90 MG TABLET PO (08:30)
[2018-04-06] MEDS: HEPARIN 5,000 UNIT/0.5 ML VIAL SC (08:36)
[2018-04-07] MEDS ORDERED: EPOETIN 10000 UNITS/1 ML INJ (ESRD) SC (17:00)
== END 2018-04-06 15:43 | disposition home or self-care (01) | DRG 313 ==
LOC: E/R 20:34 → TEL 22:04
PROC: 5A1D70Z Performance of Urinary Filtration, Intermittent, Less than 6 Hours Per Day (ICD-10-PCS; principal; 2018-04-05)
DX: R07.89 Other chest pain (principal); N18.6 End stage renal disease; I12.0 Hypertensive chronic kidney disease with stage 5 chronic kidney disease or end stage renal disease; Z95.1 Presence of aortocoronary bypass graft; Z95.5 Presence of coronary angioplasty implant and graft; E66.9 Obesity, unspecified; Z68.38 Body mass index [BMI] 38.0-38.9, adult; Z99.2 Dependence on renal dialysis; E03.9 Hypothyroidism, unspecified; G89.4 Chronic pain syndrome
CPT/HCPCS: 36415; 71045; 80048; 80053; 80061; 82550; 82553; 83036; 83735; 84100; 84443; 84484; 85025; 86706; 87081; 87340; 90935; 93005; 99291-25

== ENCOUNTER 2018-04-30 18:03 | Emergency (ER) | payer OTHER ==
[2018-04-30 18:23] LABS: ADD MAN DIFF? NO
[2018-04-30 18:27] LABS: ABNORMAL IP MESSAGE 1; BASOPHILS % 0.5 % (0.0-2.0); EOSINOPHILS # 0.1 10^3/ul (0.0-0.5); EOSINOPHILS % 1.3 % (0.0-7.0); HEMATOCRIT 29.5 % (42.0-52.0); HEMOGLOBIN 9.3 g/dl (14.0-18.0); LYMPHOCYTES # 0.4 10^3/ul (0.8-2.9); LYMPHOCYTES % 4.8 % (15.0-51.0); MEAN CORPUSCULAR HEMOGLOBIN 28.7 pg (29.0-33.0); MEAN CORPUSCULAR HGB CONC 31.5 g/dl (32.0-37.0); MEAN PLATELET VOLUME 11.1 fl (7.4-10.4); MONOCYTE # 0.6 10^3/ul (0.3-0.9); MONOCYTES % 7.4 % (0.0-11.0); NEUTROPHIL # 7.1 10^3/ul (1.6-7.5); NEUTROPHILS % 85.6 % (39.0-77.0); PLATELET COUNT 117 10^3/UL (140-415); POSITIVE DIFF @See below; RED BLOOD COUNT 3.24 10^6/ul (4.70-6.10); RED CELL DISTRIBUTION WIDTH 18.7 % (11.5-14.5)
[2018-04-30 18:27] LABS: WHITE BLOOD COUNT 8.3 10^3/ul (4.8-10.8)
[2018-04-30] MEDS: NITROGLYCERIN (SL) 0.4 MG TAB SL ×3 (18:35→19:32)
[2018-04-30] MEDS: NITROGLYCERIN 2% 1 GM OINT PKT TD (18:36)
[2018-04-30 19:01] LABS: ANION GAP 21 (8-16); BLOOD UREA NITROGEN 63 mg/dl (7-20); CALCIUM 8.5 mg/dl (8.4-10.2); CARBON DIOXIDE 26 mmol/L (21-31); CHLORIDE 99 mmol/L (97-110); CREATININE 9.29 mg/dl (0.61-1.24); GLUCOSE 118 mg/dl (70-220); POTASSIUM 5.2 mmol/L (3.5-5.1); SODIUM 141 mmol/L (135-144)
[2018-04-30 19:19] LABS: TROPONIN-I 0.453 ng/ml (0.000-0.120)
[2018-04-30] MEDS: HYDROmorphONE 1 MG/ML SYG IV (19:55)
[2018-04-30 20:48] LABS: TROPONIN-I 0.428 ng/ml (0.000-0.120)
== END 2018-04-30 23:50 | disposition short-term general hospital (02) ==
LOC: E/R 23:50
DX: I21.4 Non-ST elevation (NSTEMI) myocardial infarction (principal); D64.9 Anemia, unspecified; I10 Essential (primary) hypertension; I25.10 Atherosclerotic heart disease of native coronary artery without angina pectoris; I25.2 Old myocardial infarction; R40.2142 Coma scale, eyes open, spontaneous, at arrival to emergency department; R40.2362 Coma scale, best motor response, obeys commands, at arrival to emergency department; R40.2252 Coma scale, best verbal response, oriented, at arrival to emergency department; Z95.1 Presence of aortocoronary bypass graft; Z99.2 Dependence on renal dialysis; Z79.82 Long term (current) use of aspirin
CPT/HCPCS: 36415; 71045; 80048; 84484; 85025; 93005; 96374; 99291-25